=== PATIENT | female | born 2000 | race Caucasian/White ===

== ENCOUNTER 2025-04-30 10:50 | Emergency (ER) | payer SELFPAY ==
[~2025-04-30] VITALS: Ht 165.1 cm; Wt 77.3 kg
[2025-04-30 10:56] VITALS: TEMP 98.2
[2025-04-30 11:30] VITALS: BP 118/74; PULSE 74; RESP 14; O2SAT 100
[2025-04-30] MEDS: PERTUSS(ACELL),DIPH,TET/PF 0.5 ML SYRINGE [ADULT] IM. ONE (12:24)
== END 2025-04-30 12:41 | disposition home or self-care (01) ==
LOC: EMS 10:56
DX: S81.812A Laceration without foreign body, left lower leg, initial encounter (principal); W45.8XXA Other foreign body or object entering through skin, initial encounter; Y93.89 Activity, other specified; Y92.89 Other specified places as the place of occurrence of the external cause; Y99.8 Other external cause status
CPT/HCPCS: 12001; 90715; 99282